=== PATIENT | female | born 1935 | race Caucasian/White ===

== ENCOUNTER 2017-04-19 14:22 | Emergency (ER) | payer MEDICARE, MEDICAID, SELFPAY | END 2017-04-19 17:12 | disposition home or self-care (01) | PROVIDERS: Emergency Provider Emergency Medicine; Family Provider Family Medicine; Visit Provider Emergency Medicine | DX: K57.32 Diverticulitis of large intestine without perforation or abscess without bleeding (principal); J44.9 Chronic obstructive pulmonary disease, unspecified; Z87.891 Personal history of nicotine dependence; Z85.41 Personal history of malignant neoplasm of cervix uteri; Z79.82 Long term (current) use of aspirin; Z79.52 Long term (current) use of systemic steroids; Z79.899 Other long term (current) drug therapy | CPT/HCPCS: 74176; 80053; 81001; 83690; 85025; 99283 ==

== ENCOUNTER 2017-04-25 08:49 | Emergency (ER) | payer MEDICARE, MEDICAID, SELFPAY | END 2017-04-25 11:39 | disposition home or self-care (01) | PROVIDERS: Emergency Provider Emergency Medicine; Family Provider Nurse Practitioner Family; PCP Nurse Practitioner Family; Visit Provider Emergency Medicine | DX: K59.00 Constipation, unspecified (principal); R10.84 Generalized abdominal pain; R91.1 Solitary pulmonary nodule; J44.9 Chronic obstructive pulmonary disease, unspecified; Z79.82 Long term (current) use of aspirin | CPT/HCPCS: 71010; 74176; 76705; 80053; 81001; 83605; 83690; 85025; 87040; 87086; 94640; 96374; 96375; 99284; J2405 ==